=== PATIENT | female | born 1960 | race Hispanic/Latino ===

== ENCOUNTER → 2017-04-23 | Outpatient (CLI) | payer MEDICAID ==
[~2017-04-23] MED LIST: ATEN50TA PO; INSNOV SQ; LISI40TA4 PO; ROPI0.255 PO; SIMV20TA6 PO
== END ==
LOC: RAH 14:36
PROVIDERS: ATTEND Family Medicine
DX: M13.861 Other specified arthritis, right knee (principal)
CPT/HCPCS: 73562

== ENCOUNTER 2018-06-05 17:39 | Emergency (ER) | payer MEDICAID ==
[~2018-06-05 17:39] MED LIST changes: -ROPI0.255 PO; +ROPI0.257 PO
== END 2018-06-05 20:15 | disposition home or self-care (01) ==
LOC: EDH 17:39
DX: E11.621 Type 2 diabetes mellitus with foot ulcer (principal); L97.519 Non-pressure chronic ulcer of other part of right foot with unspecified severity; J45.909 Unspecified asthma, uncomplicated; E78.5 Hyperlipidemia, unspecified; I10 Essential (primary) hypertension; Z88.8 Allergy status to other drugs, medicaments and biological substances
CPT/HCPCS: 73630

== ENCOUNTER 2019-02-06 18:56 | Emergency (ER) | payer MEDICAID ==
[~2019-02-06 18:56] MED LIST changes: +SIMV-43 PO; -SIMV20TA6 PO
[2019-02-06 19:40] LABS: APPEARANCE,URINE Clear (CLEAR); BILIRUBIN,URINE Negative (NEGATIVE); COLOR,URINE Yellow (YELLOW); GLUCOSE, URINE (UA) >=1000 mg/dL (NEGATIVE); KETONES,URINE Negative (NEGATIVE); LEUKOCYTE ESTERASE ,URINE Negative (NEGATIVE); NITRATE,URINE Negative (NEGATIVE); OCCULT BLOOD,URINE Negative (NEGATIVE); PROTEIN,URINE POS 1+ mg/dL (NEGATIVE); UROBILINOGEN,URINE 0.2 mg/dL (0.2-1.0)
[2019-02-06 19:46] LABS: AMPHET/METH SCREEN,URINE NEGATIVE (NEGATIVE); BARBITURATE SCREEN, URINE NEGATIVE (NEGATIVE); BENZODIAZEPINES SCREEN,URINE NEGATIVE (NEGATIVE); CANNABINOID SCREEN,URINE NEGATIVE (NEGATIVE); COCAINE SCREEN,URINE NEGATIVE (NEGATIVE); OPIATE SCREEN,URINE NEGATIVE (NEGATIVE); PHENCYCLIDINE SCREEN,URINE NEGATIVE (NEGATIVE)
[2019-02-06 20:05] LABS: BASOPHILS % (AUTO) 0.4 % (0.0-5.0); EOSINOPHILS % (AUTO) 0.9 % (0.0-8.0); LYMPHOCYTES % (AUTO) 14.6 % (21.0-51.0); MEAN CORPUSCULAR HEMOGLOBIN 30.4 pg (27.0-33.0); MEAN CORPUSCULAR HGB CONC 33.6 g/dL (32.0-36.0); MEAN CORPUSCULAR VOLUME 90.5 fL (79-99); MONOCYTES % (AUTO) 4.4 % (3.0-13.0); NEUTROPHILS % (AUTO) 79.7 % (40.0-77.0); PLATELET COUNT (AUTO) 219 K/uL (130-400); RED BLOOD CELL COUNT(AUTO) 3.76 MIL/uL (4.00-5.50); RED CELL DISTRIBUTION WIDTH 13.9 % (11.0-15.5); WHITE BLOOD COUNT (AUTO) 8.4 K/uL (4.8-10.8)
[2019-02-06 20:06] LABS: BACTERIA,URINE Few /HPF (None Seen); RBC,URINE 0-1 /HPF (0-1); YEAST,URINE BUDDING Few /HPF (None Seen)
[2019-02-06 20:07] LABS: MUCUS,URINE Rare LPF (None Seen)
[2019-02-06] MEDS ORDERED: KETOROLAC TROMETHAMINE 30MG/ML ONE (20:09)
[2019-02-06 20:19] LABS: CREATININE 1.2 mg/dL (0.5-1.5)
[2019-02-06 20:23] LABS: BILIRUBIN,TOTAL 0.3 mg/dL (0.2-1.0); TOTAL PROTEIN, SERUM 7.2 g/dL (6.0-8.3)
[2019-02-06 20:28] LABS: INR 0.96 (0.85-1.15); PARTIAL THROMBOPLASTIN TIME 23.6 SEC (26.3-35.5); PROTHROMBIN TIME 10.1 SEC (9.6-11.6)
[2019-02-06] MEDS ORDERED: CEFTRIAXONE SODIUM 1 GM ONE (20:52)
[2019-02-06] MEDS ORDERED: SODIUM CHLORIDE 0.9% 100 ML IV ONE (20:54)
== END 2019-02-06 21:57 | disposition home or self-care (01) ==
LOC: EDH 18:56
DX: N39.0 Urinary tract infection, site not specified (principal); M25.552 Pain in left hip; M54.5 Low back pain; J45.909 Unspecified asthma, uncomplicated; I25.10 Atherosclerotic heart disease of native coronary artery without angina pectoris; E11.9 Type 2 diabetes mellitus without complications; E78.5 Hyperlipidemia, unspecified; I10 Essential (primary) hypertension; Z79.4 Long term (current) use of insulin; Z87.891 Personal history of nicotine dependence; Z88.5 Allergy status to narcotic agent; Z88.8 Allergy status to other drugs, medicaments and biological substances; Z79.899 Other long term (current) drug therapy; W18.39XA Other fall on same level, initial encounter; Y93.89 Activity, other specified; Y92.091 Bathroom in other non-institutional residence as the place of occurrence of the external cause; Y99.8 Other external cause status
CPT/HCPCS: 36415; 71045; 72100; 73502; 80053; 80305; 81001; 82550; 83605; 84484; 85025; 85610; 85730; 87040; 87088; 87804 ×2; 93005; 96374; 96375; 99285; J0696; J1885

== ENCOUNTER 2019-05-03 20:24 | Observation (INO) | payer MEDICAID ==
[2019-05-03 21:19] LABS: BASOPHILS % (AUTO) 0.4 % (0.0-5.0); EOSINOPHILS % (AUTO) 2.8 % (0.0-8.0); HEMATOCRIT 36.3 % (36-48); LYMPHOCYTES % (AUTO) 25.8 % (21.0-51.0); MEAN CORPUSCULAR HEMOGLOBIN 28.8 pg (27.0-33.0); MEAN CORPUSCULAR HGB CONC 31.7 g/dL (32.0-36.0); MONOCYTES % (AUTO) 7.2 % (3.0-13.0); NEUTROPHILS % (AUTO) 63.6 % (40.0-77.0); PLATELET COUNT (AUTO) 263 K/uL (130-400); RED BLOOD CELL COUNT(AUTO) 3.99 MIL/uL (4.00-5.50); RED CELL DISTRIBUTION WIDTH 12.8 % (11.0-15.5); WHITE BLOOD COUNT (AUTO) 5.7 K/uL (4.8-10.8)
[2019-05-03 21:28] LABS: AMPHET/METH SCREEN,URINE NEGATIVE (NEGATIVE); BARBITURATE SCREEN, URINE NEGATIVE (NEGATIVE); BENZODIAZEPINES SCREEN,URINE NEGATIVE (NEGATIVE); CANNABINOID SCREEN,URINE NEGATIVE (NEGATIVE); COCAINE SCREEN,URINE NEGATIVE (NEGATIVE); OPIATE SCREEN,URINE NEGATIVE (NEGATIVE); PHENCYCLIDINE SCREEN,URINE NEGATIVE (NEGATIVE)
[2019-05-03 21:34] LABS: INR 0.96 (0.85-1.15); PARTIAL THROMBOPLASTIN TIME 25.8 SEC (26.3-35.5); PROTHROMBIN TIME 10.1 SEC (9.6-11.6)
[2019-05-03 21:44] LABS: CREATININE 0.6 mg/dL (0.5-1.5); POTASSIUM 4.6 mmol/L (3.5-5.1)
[2019-05-03 21:58] LABS: BILIRUBIN,URINE Negative (NEGATIVE); COLOR,URINE Yellow (YELLOW); GLUCOSE, URINE (UA) >=1000 mg/dL (NEGATIVE); KETONES,URINE Negative (NEGATIVE); LEUKOCYTE ESTERASE ,URINE Negative (NEGATIVE); NITRATE,URINE Negative (NEGATIVE); OCCULT BLOOD,URINE Negative (NEGATIVE); PROTEIN,URINE POS 2+ mg/dL (NEGATIVE); UROBILINOGEN,URINE 0.2 mg/dL (0.2-1.0)
[2019-05-03 22:03] LABS: APPEARANCE,URINE CLEAR (CLEAR)
[2019-05-03 22:06] LABS: BACTERIA,URINE Few /HPF (None Seen); RBC,URINE None Seen /HPF (0-1); SQUAMOUS EPITHELIAL CELL,UR 0-2 /HPF (0-2); WBC,URINE 0-1 /HPF (0-1)
[2019-05-03 22:18] LABS: ALBUMIN 3.8 g/dL (3.5-5.0); BILIRUBIN,TOTAL 0.5 mg/dL (0.2-1.0); TOTAL PROTEIN, SERUM 8.5 g/dL (6.0-8.3)
[2019-05-03] MEDS ORDERED: ASPIRIN 325 MG TABLET ONE (22:27)
[2019-05-04] MEDS ORDERED: DEXTROSE 5 % AND 0.9 % NACL 1,000 ML IV ONE (00:18)
[2019-05-04] MEDS ORDERED: SODIUM CHLORIDE 0.9% 1000ML 1,000 ML IV SCH (02:45)
[2019-05-04] MEDS ORDERED: ACETAMINOPHEN 650 MG SUPPOSITORY RC PRN (02:45)
[2019-05-04] MEDS ORDERED: ASPIRIN 300 MG SUPPOSITORY PR ONE (02:45)
[2019-05-04] MEDS ORDERED: HYDRALAZINE HCL 20 MG/ML VIAL IV PRN (02:45)
[2019-05-04] MEDS ORDERED: ONDANSETRON HCL 4 MG/2 ML VIAL IVP PRN (02:45)
[2019-05-04] MEDS ORDERED: HYDRALAZINE HCL 20 MG/ML VIAL ONE ×2 (04:50→05:32)
[2019-05-04] MEDS ORDERED: ACETAMINOPHEN 650 MG SUPPOSITORY RC ONE (05:40)
[2019-05-04 06:48] LABS: CREATININE 0.7 mg/dL (0.5-1.5); POTASSIUM 3.7 mmol/L (3.5-5.1)
[2019-05-04] MEDS ORDERED: FAMOTIDINE/PF 20 MG/2 ML VIAL IV SCH (09:00)
--- NOTE | 2019-05-04 09:56 | NUR ---
INITIAL SW met with patient. Patient states she lives alone. Her son, Kali Neumann, is emergency contact. No home health but does have PHC with [facility] hours. DME: BPM, glucometer (uses insulin), walker with seat, cane, nebulizer, shower chair. Patient is able to complete ADL's independently but does not drive. PCP is Dr. Vince Ch. Pharmacy [facility] in [place]. DCP is home. Addendum: 05/04/19 at 0959 by DORENE COFFEY SS Amended: Links added.
[2019-05-04] MEDS ORDERED: CLOPIDOGREL BISULFATE 75 MG TAB PO SCH (10:00)
[2019-05-04] MEDS ORDERED: ASPIRIN 81MG TAB.CHEW PO SCH (10:00)
[2019-05-04] MEDS ORDERED: GLUCAGON 1MG KIT 1 MG ML IM PRN (10:15)
[2019-05-04] MEDS ORDERED: ACETAMINOPHEN 325 MG TAB PO PRN ×2 (10:15)
[2019-05-04] MEDS ORDERED: DEXTROSE 50%-WATER 50 ML DISP.SYRIN IV PRN (10:15)
[2019-05-04] MEDS ORDERED: GUAIFENESIN-DM 200/20 MG 10 ML PO PRN (10:15)
[2019-05-04] MEDS ORDERED: POTASSIUM CHLORIDE 10% ELIXIR 20 MEQ/15 ML UDCUP PO PRN (10:15)
[2019-05-04] MEDS ORDERED: DiphenhydrAMINE HCL 50 MG/ML VIAL IV PRN (10:15)
[2019-05-04] MEDS ORDERED: LIDOCAINE HCL-MPF 1% 2ML VIAL IV PRN (10:15)
[2019-05-04] MEDS ORDERED: NITROGLYCERIN 0.4 MG SL TAB SL PRN (10:15)
[2019-05-04] MEDS ORDERED: ALBUTEROL SULFATE 0.083% 2.5 MG/3 ML INH IH PRN (10:15)
[2019-05-04] MEDS ORDERED: POTASSIUM CHLORIDE 20MEQ/100ML 100 ML IV PRN (10:15)
[2019-05-04] MEDS ORDERED: POTASSIUM CHLORIDE 20 MEQ ERTAB PO PRN (10:15)
[2019-05-04] MEDS ORDERED: LACTULOSE 20 GM/30 ML UDCUP PO PRN (10:15)
[2019-05-04] MEDS ORDERED: DIPHENHYDRAMINE HCL 25 MG CAPSULE PO PRN (10:15)
--- NOTE | 2019-05-04 10:45 | NUR ---
DYSPHAGIA EVAL COMPLETED. -S/S OF ASPIRATION. RECOMMEND REGULAR TEXTURE, THIN LIQUIDS; PILLS WHOLE WITH LIQUIDS. Addendum: 05/04/19 at 1246 by GERRY PARRA, [facility] Amended: Links added.
--- NOTE | 2019-05-04 11:00 | NUR ---
COGNITIVE EVAL COMPLETE. COGNITIVE-LINGUISTIC ABILITIES WITHIN FUNCTIONAL LIMITS. EVALUATION: Pt AAOX3. Pt REQUESTS WANTS AND NEEDS INDEPENDENTLY. Pt INTELLIGIBLE AT 100% ACCURACY TO THE UNFAMILIAR LISTENER. Pt COMMUNICATING AT CONVERSATIONAL LEVEL WITH NO DEFICITS IDENTIFIED AT THIS TIME. Pt COMPLETED COGNITIVE-LINGUISTIC EVALUATION TARGETING: ORIENTATION, ATTENTION/CONCENTRATION, MEMORY (IMMEDIATE, SHORT-TERM AND LONG-TERM), PROBLEM SOLVING, LOGIC/REASONING/INFERENCE, THOUGHT ORGANIZATION, FUNCTIONAL MATH AND TELLING TIME. Pt ABLE TO COMPLETE TASKS WITH CORRECT AND TIMELY ANSWERS TO ALL SECTIONS. G-CODES SPOKEN LANGUAGE EXPRESSION: [id number] Addendum: 05/04/19 at 1252 by GERRY PARRA [facility] Amended: Links added.
[2019-05-04] MEDS ORDERED: ASPIRIN 81MG TAB.CHEW ONE (11:28)
[2019-05-04] MEDS ORDERED: CLOPIDOGREL BISULFATE 75 MG TAB ONE (11:29)
[2019-05-04] MEDS ORDERED: INSULIN HUMULIN R 100 UNIT/ML 3ML SQ SCH (11:30)
[2019-05-04] MEDS ORDERED: DIAZEPAM 2 MG TAB PO ONE (11:45)
[2019-05-04] MEDS ORDERED: CARBIDOPA-LEVODOPA 25-100 TAB PO SCH (12:00)
[2019-05-04] MEDS ORDERED: CARB1TAB20 PO (13:16)
[2019-05-04] MEDS ORDERED: ASPI-1005 PO (13:16)
--- NOTE | 2019-05-04 14:35 | NUR ---
CM NOTE CALL FROM STONEY CURRY FROM ER DEPARTMENT. PATIENT IS DISCHARGING HOME AND PHYSICAL THERAPY DEPARTMENT RECOMMENDED WALKER OR REFERRAL FOR HOME HEALTH. PER DORENE SS NOTE, PATIENT HAS WALKER WITH SEAT AND CANE. INFORMED STONEY CURRY THAT PATIENT MAY RETURN TO PCP IN 1-2 DAYS AND REQUEST REFERRAL FOR HOME HEALTH FOR PHYSICAL THERAPY. STONEY CURRY VERBALIZED UNDERSTANDING. PATIENT TO DISCHARGE HOME TO CURRENT PROVIDER SERVICES AND CURRENT DME AVAILABLE.
[2019-05-04] MEDS ORDERED: ROPINIROLE HCL 0.25 MG TABLET PO SCH (21:00)
[2019-05-04] MEDS ORDERED: ATORVASTATIN CALCIUM 40 MG TABLET PO SCH (21:00)
== END 2019-05-04 15:20 | disposition home or self-care (01) ==
LOC: EDH 20:24 → EDHIP 20:25 → INTOOBSV 20:25
PROVIDERS: ADMIT Internal Medicine Pulmonary Disease; ATTEND Internal Medicine Pulmonary Disease
DX: I63.9 Cerebral infarction, unspecified (principal); I12.9 Hypertensive chronic kidney disease with stage 1 through stage 4 chronic kidney disease, or unspecified chronic kidney disease; E11.22 Type 2 diabetes mellitus with diabetic chronic kidney disease; N18.9 Chronic kidney disease, unspecified; E11.319 Type 2 diabetes mellitus with unspecified diabetic retinopathy without macular edema; H54.61 Unqualified visual loss, right eye, normal vision left eye; E11.21 Type 2 diabetes mellitus with diabetic nephropathy; E11.40 Type 2 diabetes mellitus with diabetic neuropathy, unspecified; G20 Parkinson's disease; J45.909 Unspecified asthma, uncomplicated; E66.9 Obesity, unspecified; D63.8 Anemia in other chronic diseases classified elsewhere; Z79.899 Other long term (current) drug therapy; Z79.4 Long term (current) use of insulin
CPT/HCPCS: 36415 ×2; 70450; 70544; 70547; 70551; 71045 ×2; 72125; 80048; 80053; 80305; 81001; 82550; 82948 ×2; 83721; 84484; 85025; 85610; 85730; 92522; 92610; 93005; 94664; 97039; 97116; 97161; 99285; G0378 ×5; G8978; G8979; G8980; G8981; G8982; G8983; J0360 ×2; J7042